=== PATIENT | female | born 1945 | race Caucasian/White ===

== ENCOUNTER → 2020-06-29 | Outpatient (CLI) | payer OTHER ==
[~2020-06-29] MED LIST: COZAAR 50 MG TA50 M2 PO; FENOFIBRATE43 MG PO
--- NOTE | 2020-06-29 14:12 | 2DMMODE ---
[place] [address] 2 D/M-MODE ECHOCARDIOGRAM Name: URIELANNETAYLOR E Room: [facility]#: [id number] Admission: 06/29/20 Attend Phys: Domingo Merida, Discharge: Date of : 47 Date of Service: 06/29/20 1412 Report #: [id number] THIS REPORT FOR: cc: Meera Gutiérrez MD, Jayne Lora MD Liston, Michael J. MD [facility] ~ APPROVED REPORT Study performed: 06/29/2020 10:19:52 EXAM: Comprehensive 2D, Doppler, and color-flow Echocardiogram Patient Location: Out-Patient BSA: 2.12 HR: 80 bpm BP: 120/80 mmHg Other Information Study Quality: Fair Indications Aortic Valve Disease 2D Dimensions IVSd: 12.86 (7-11mm) LVOT Diam: 20.14 (18-24mm) LVDd: 48.60 mm PWd: 9.39 (7-11mm) Ascending Ao: 32.37 (22-36mm) LVDs: 19.39 (25-40mm) Aortic Root: 24.21 mm Volumes Left Atrial Volume (Systole) LA ESV Index: 15.90 mL/m2 Aortic Valve AoV Peak Santo.: 3.21 m/s AO Peak Gr.: 41.10 mmHg LVOT Max P.00 mmHg AO Mean Gr.: 24.99 mmHg LVOT Mean P.79 mmHg LVOT Max V: 1.12 m/s AO V2 VTI: 67.29 cm LVOT Mean V: 0.79 m/s HO (VTI): 1.14 cm2 LVOT V1 VTI: 24.12 cm Mitral Valve E/A Ratio: 0.53 [place] [address] 2 D/M-MODE ECHOCARDIOGRAM Name: TAYLOR HENSON Room: [facility]#: [id number] Admission: 06/29/20 Attend Phys: Domingo Merida, Discharge: Date of : 47 Date of Service: 06/29/20 1412 Report #: [id number] MV Decel. Time: 482.76 ms MV E Max Santo.: 0.45 m/s MV PHT: 140.00 ms MVA (PHT): 1.57 cm2 TDI E/Lateral E': 7.50 E/Medial E': 5.63 Medial E' Santo.: 0.08 m/s Lateral E' Santo.: 0.06 m/s Pulmonary Valve PV Peak Santo.: 0.95 m/s PV Peak Gr.: 3.61 mmHg Left Ventricle The left ventricle is normal size. There is normal LV segmental wall motion. There is normal left ventricular wall thickness. Left ventricular systolic function is vigorous. LVEF is >70%. Grade I - abnormal relaxation pattern. Right Ventricle The right ventricle is normal size. The right ventricular systolic function is normal. Atria The left atrium size is normal. The right atrium size is normal. Aortic Valve Moderate aortic valve sclerosis. No aortic regurgitation is present. Moderate aortic stenosis. Mitral Valve The mitral valve is normal in structure. There is no mitral valve regurgitation noted. No evidence of mitral valve stenosis. Tricuspid Valve The tricuspid valve is normal in structure. There is no tricuspid valve regurgitation noted. Pulmonic Valve The pulmonary valve is normal in structure. There is no pulmonic valvular regurgitation. Great Vessels The aortic root is normal in size. IVC is normal in size and collapses >50% [place] [address] 2 D/M-MODE ECHOCARDIOGRAM Name: URIELANNETAYLOR Room: [facility]#: [id number] Admission: 06/29/20 Attend Phys: Domingo Merida, Discharge: Date of : 47 Date of Service: 06/29/20 1412 Report #: [id number] Pericardium There is no pericardial effusion. <Conclusion> The left ventricle is normal size. There is normal left ventricular wall thickness. Left ventricular systolic function is vigorous. LVEF is >70%. Grade I - abnormal relaxation pattern. Moderate aortic valve sclerosis. Moderate aortic stenosis. IVC is normal in size and collapses >50% with inspiration. <ELECTRONICALLY SIGNED> By: Domingo Merida MD, FACC 06/29/201411 11 11 Domingo Merida MD, FACC /INF
== END ==
LOC: M.CRD 10:00
PROVIDERS: ATTEND Internal Medicine Cardiovascular Disease
DX: I35.0 Nonrheumatic aortic (valve) stenosis (principal)

== ENCOUNTER → 2021-08-04 | Outpatient (CLI) | payer MEDICARE, OTHER | LOC: M.ULTRA 08-02 08:30 | PROVIDERS: ATTEND Hospitalist | DX: N63.22 Unspecified lump in the left breast, upper inner quadrant (principal); R92.8 Other abnormal and inconclusive findings on diagnostic imaging of breast ==